=== PATIENT | male | born 2000 | race Hispanic/Latino ===

== ENCOUNTER 2022-10-30 19:08 | Emergency (ER) | payer OTHER ==
[~2022-10-30] VITALS: Ht 175.3 cm; Wt 103.0 kg
[2022-10-30 19:54] VITALS: BP 137/72
[2022-10-30] MEDS ORDERED: ALBUTEROL 0.083% 2.5 MG/3 ML INH IH ONE ×2 (20:30→22:30)
[2022-10-30 21:15] LABS: BASOPHILS % (AUTO) 0.2 % (0.0-5.0); EOSINOPHILS % (AUTO) 1.2 % (0.0-8.0); HEMATOCRIT 41.8 % (42-54); LYMPHOCYTES % (AUTO) 27.2 % (21.0-51.0); MEAN CORPUSCULAR HEMOGLOBIN 28.5 pg (27.0-33.0); MEAN CORPUSCULAR HGB CONC 34.2 g/dL (32.0-36.0); MEAN CORPUSCULAR VOLUME 83.3 fL (79-99); NEUTROPHILS % (AUTO) 59.2 % (40.0-77.0); PLATELET COUNT (AUTO) 299 K/uL (130-400); RED BLOOD CELL COUNT(AUTO) 5.02 MIL/uL (4.50-6.20); RED CELL DISTRIBUTION WIDTH 12.7 % (11.0-15.5); WHITE BLOOD COUNT (AUTO) 9.4 K/uL (4.8-10.8)
[2022-10-30 21:23] LABS: CREATININE 1.1 mg/dL (0.5-1.5); POTASSIUM 3.5 mmol/L (3.5-5.1)
[2022-10-30 21:27] LABS: ALBUMIN 3.9 g/dL (3.5-5.0); TOTAL PROTEIN, SERUM 7.9 g/dL (6.0-8.3)
[2022-10-30] MEDS ORDERED: LIDOCAINE HCL 2% VISCOUS 15 ML UDCUP PO ONE (22:00)
[2022-10-30] MEDS ORDERED: BENZONATATE 100 MG CAPSULE PO SCH (22:00)
[2022-10-30] MEDS ORDERED: BENZ200C53 PO (22:05)
[2022-10-30] MEDS ORDERED: ALBU90AE2 IH (22:05)
[2022-10-30] MEDS ORDERED: AZIT250T9 PO (22:05)
[2022-10-30] MEDS ORDERED: PRED20TA3 PO (22:24)
[2022-10-30] MEDS ORDERED: IPRATROPIUM 0.5 MG/2.5 ML INH IH ONE (22:30)
== END 2022-10-30 23:18 | disposition home or self-care (01) ==
LOC: EDH 19:08
DX: J20.9 Acute bronchitis, unspecified (principal); R05.9 Cough, unspecified; J45.909 Unspecified asthma, uncomplicated; Z90.89 Acquired absence of other organs; Z79.2 Long term (current) use of antibiotics; Z79.899 Other long term (current) drug therapy; Z20.822 Contact with and (suspected) exposure to COVID-19
CPT/HCPCS: 99284; 71046; 87635; 80053; 85025; 87880; 87804 ×2; 36415; 94640 ×2; C9803